=== PATIENT | female | born 1975 | race Caucasian/White ===

== ENCOUNTER → 2017-07-21 | Outpatient (CLI) | payer MEDICAID ==
[~2017-07-21] MED LIST: GABAPENTIN300 MG PO; IBUPROFEN800 MG PO; NEURONTIN100 MG OR; NORCO 325 MG-51 TAB PO; SPRINTEC 35 MCG1 TAB PO
[2017-07-21 11:59] LABS: BUN 13 mg/dL (7-18)
[2017-07-21 12:00] LABS: GFR (ESTIMATED) 79 ML/MIN (59-)
[2017-07-21 14:57] LABS: LYMPH # 2.6 K/mm3 (0.7-4.5); LYMPH % 40.2 % (10-50.0)
[2017-07-21 14:59] LABS: HEMOGLOBIN 14.8 g/dL (12.2-16.2)
[2017-07-22 09:37] LABS: Iron 76 ug/dL (27-159); Iron Saturation 18 % (15-55); UIBC 356 ug/dL (131-425); Vitamin B12 836 pg/mL (211-946)
== END ==
LOC: LAB 10:47
PROVIDERS: Physician Assistant
DX: R20.2 Paresthesia of skin (principal); R10.13 Epigastric pain; R07.89 Other chest pain